=== PATIENT | female | born 1960 | race Two or more races ===

== ENCOUNTER 2021-02-06 09:50 | Outpatient (CLI) | payer OTHER | END 2021-02-06 10:15 | disposition home or self-care (01) | LOC: PPH VACUNA 09:50 | PROVIDERS: ATTEND Emergency Medicine Pediatric Emergency Medicine | DX: Z23 Encounter for immunization (principal) ==

== ENCOUNTER 2023-09-22 12:20 | Outpatient (CLI) | payer OTHER | END 2023-09-22 12:23 | disposition home or self-care (01) | LOC: SONOGRAMA 12:20 | PROVIDERS: ATTEND Pathology Anatomic Pathology & Clinical Pathology | DX: D34 Benign neoplasm of thyroid gland (principal); E07.89 Other specified disorders of thyroid; E04.1 Nontoxic single thyroid nodule ==